=== PATIENT | male | born 1975 | race Caucasian/White ===

== ENCOUNTER 2020-01-23 11:37 | Emergency (ER) | payer OTHER ==
[2020-01-23 11:42] VITALS: BP 134/93; PULSE 87; TEMP 99; BMI 27.8
--- NOTE | 2020-01-23 11:51 | PDOC ---
History of Present Illness - General Chief Complaint: Injury Stated Complaint: RIGHT ARM PAIN Time Seen by Provider: 01/23/20 11:51 - History of Present Illness Initial Comments: HPI: 44yo M with no reported PMH presenting with right arm pain. 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 Has never felt this pain before. Rates it 5/10. Did not take anything for it. Did not hear a crack when the pain started. Does not follow with an orthopedist. No fevers, chills, chest pain, or shortness of breath. ROS: Constitutional: no fever, no chills HEENT: no throat pain, no dysphagia Cardiovascular: no chest pain, no palpitations Respiratory: no cough, no shortness of breath Gastrointestinal: no abdominal pain, no nausea Genitourinary: no dysuria, no hematuria Musculoskeletal: no left arm pain, +right arm pain Skin: no rash, no itching Neurologic: no headache, no weakness Psych: no agitation, no anxiety PE: General: Awake, alert, and fully oriented, in no acute distress Head: No signs of trauma Eyes: EOMI, sclera anicteric ENT: Moist mucus membranes Neck: Normal ROM, supple Lungs: Lungs clear, Normal breath sounds Cardio: Regular rhythm, S1 and S2 present Abdomen: Soft, nontender. No guarding, no rebound, no masses Extremities: Normal range of motion in bilaterally shoulders/elbows/wrists, Distal pulses present bilaterally, equal strength and sensation LUE without ttp, RUE with mild ttp extending from mid-forarm to mid-bicep; no bony deformity appreciated, no overlying rash/lesion Skin: Warm, Dry, normal turgor Neurologic: Cranial nerves II through XII grossly intact. Normal speech ED Course/MDM: DDX including but not limited to muscle strain, fracture, break Likely a muscle strain; no bony deformities noted- doubt a fracture or break Motrin for pain Radiographic imaging not indicated given benign exam Work note Instructed to practice rest, ice, compression, elevation Return precautions Stable for discharge 01/23/20 12:21 Past History - Medical History Allergies/Adverse Reactions: Allergies Allergy/AdvReac Type Severity Reaction Status Date / Time No Known Allergies Allergy Verified 01/23/20 11:39 Home Medications: Ambulatory Orders NK [No Known Home Medication] 05/22/14 COPD: No - Immunization History Immunization Up to Date: Yes - Psycho-Social/Smoking History Smoking Status: No Smoking History: Never smoked Have you smoked in the past 12 months: No Number of Cigarettes Smoked Daily: 0 Information on smoking cessation initiated: No - Substance Abuse Hx (Audit-C & DAST Scrn) How often the patient has a drink containing alcohol: Never Score: In Men: 4 or > Positive; In Women: 3 or > Positive: 0 Screen Result (Pos requires Nsg. Audit-10AR): Negative In the last yr the pt used illegal drug/Rx for NonMed reason: No Score: Yes response is considered Positive: 0 Screen Result (Positive result requires Nsg. DAST-10): Negative *Physical Exam - Vital Signs Last Vital Signs Temp Pulse Resp BP Pulse Ox 99 F 87 18 134/93 98 01/23/20 11:37 01/23/20 11:37 01/23/20 11:37 01/23/20 11:37 01/23/20 11:37 Discharge - Discharge Information Problems reviewed: Yes Clinical Impression/Diagnosis: Right arm pain Condition: Stable Disposition: HOME - Follow up/Referral Referrals: Chan Monte MD [Primary Care Provider] - - Patient Discharge Instructions Patient Printed Discharge Instructions: DI for Arm Pain Additional Instructions: You came into the emergency department for right arm pain. Your exam was did not indicate signs of a fracture or break. . You can take over the counter motrin for pain. Follow the instructions on the medication bottle. Make sure you do not take too much medicine. The maximum daily dose for motrin is 3200mg/day. Practice R.I.C.E. Rest, Ice (20min application of ice on the area with a cloth, 20 min off), Compression with wrapping the wrist (make sure it is not too tight!), Elevation (place a pillow under the limb). Immediate medical attention is required if you experience: any focal numbness or weakness, coldness in the limb, or any new or concerning symptoms. If you think you are having an emergency, call for emergency medical services or present to the emergency department right away. - Post Discharge Activity Work/Back to School Note: Back to Work
[2020-01-23] MEDS ORDERED: IBUPROFEN 400 MG TABLET (FP) PO ONE ×2 (12:05→12:17)
--- NOTE | 2020-01-23 12:06 | PDOC ---
Attending Attestation - Resident Resident Name: Edie Xie - ED Attending Attestation I have performed the following: I have examined & evaluated the patient, The case was reviewed & discussed with the resident, I agree w/resident's findings & plan - HPI HPI: 01/23/20 16:13 44yo M with no reported PMH presenting with right arm pain. 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 Has never felt this pain before. Rates it 5/10. Did not take anything for it. Did not hear a crack when the pain started. Does not follow with an orthopedist. No fevers, chills, chest pain, or shortness of breath. - Physicial Exam PE: 01/23/20 12:19 General: NAD, well appearing HEENT: NCAT, EOMI, PERRL. airway patent Resp: no distress, speaking full sentences. Vascular: 2+ radialis pulses symmetric and equal. Back: no midline tenderness, no stepoffs, FROM MSK: shoulder abduction/adduction/flexion/extension and prox strength 5/5 actively against resistance. 5/5 shoulder shrug strength. deltoid sensation intact; sensation grossly intact in median/radial/ulnar distribution. distal dot compliance manager strength 5/5. 2+ radialis pulses bilaterally and symmetric. mild tenderness to the right biceps muscle, FROM at the elbow to extension and flexion. Neuro: alert, no focal neurologic deficits Skin: color normal color, warm and well perfused. Cap refill <2 sec. 01/23/20 12:23 - Medical Decision Making 01/23/20 12:06 Vital Signs Temp Pulse Resp BP Pulse Ox 99 F 87 18 134/93 98 01/23/20 11:37 01/23/20 11:37 01/23/20 11:37 01/23/20 11:37 01/23/20 11:37 VS reviewed, wnl no xray indicated. analgesia offered, declined NVI, no bony deformity or signs of fx. likely msk contusion/biceps strain during event Discussed results with patient. MO wrap for comfort,. Rest ice and elevation. Pain control with OTC meds including motrin/tylenol as needed every 6 hours; no narcotics needed. Please return to ED for increased pain, weakness, numbness/tingling, fever, or redness. 01/23/20 12:21 01/23/20 12:23 Discharge - Discharge Information Problems reviewed: Yes Clinical Impression/Diagnosis: Right arm pain Condition: Stable Disposition: HOME - Follow up/Referral Referrals: Chan Monte MD [Primary Care Provider] - - Patient Discharge Instructions Patient Printed Discharge Instructions: DI for Arm Pain Additional Instructions: You came into the emergency department for right arm pain. Your exam was did not indicate signs of a fracture or break. . You can take over the counter motrin for pain. Follow the instructions on the medication bottle. Make sure you do not take too much medicine. The maximum daily dose for motrin is 3200mg/day. Practice R.I.C.E. Rest, Ice (20min application of ice on the area with a cloth, 20 min off), Compression with wrapping the wrist (make sure it is not too tight!), Elevation (place a pillow under the limb). Immediate medical attention is required if you experience: any focal numbness or weakness, coldness in the limb, or any new or concerning symptoms. If you think you are having an emergency, call for emergency medical services or present to the emergency department right away. - Post Discharge Activity Work/Back to School Note: Back to Work
== END 2020-01-23 12:25 | disposition home or self-care (01) ==
LOC: FER 11:37
DX: M79.601 Pain in right arm (principal)
CPT/HCPCS: 99283-25

== ENCOUNTER 2022-02-27 10:30 | Emergency (ER) | payer OTHER ==
[2022-02-27 10:54] VITALS: BP 115/67; PULSE 90; RESP 16; TEMP 98.7; BMI 29.2
[2022-02-27] MEDS ORDERED: IBUPROFEN 600 MG TABLET (FP) PO ONE ×2 (11:08→11:13)
[2022-02-27] MEDS ORDERED: DIPHTH,PERTUSS(ACELL),TET 0.5 ML DISP.SYRIN IM ONE ×2 (11:19→11:20)
== END 2022-02-27 11:48 | disposition home or self-care (01) ==
LOC: FER 10:30
PROC: 3E0234Z Introduction of Serum, Toxoid and Vaccine into Muscle, Percutaneous Approach (ICD-10-PCS; principal; 2022-02-27)
DX: S60.229A Contusion of unspecified hand, initial encounter (principal); S66.919A Strain of unspecified muscle, fascia and tendon at wrist and hand level, unspecified hand, initial encounter; S80.211A Abrasion, right knee, initial encounter
CPT/HCPCS: 90715; 99283-25